=== PATIENT | male | born 1935 | race Caucasian/White ===

== ENCOUNTER → 2017-10-08 06:55 | Outpatient (CLI) | payer MEDICARE, OTHER, SELFPAY ==
--- NOTE | 2017-10-08 06:58 | ECHOD_ITS ---
Reason For Study: CAD Procedure This was a 2D Doppler, Color Flow transthoracic echocardiogram. The exam was of adequate technical quality. Exam performed in department. Left Ventricle Normal LV size. Mild segmental systolic dysfunction (see wall motion). The estimated ejection fraction is 40 %. Transmitral diastolic flow velocities suggest moderate (stage 2) diastolic dysfunction (pseudonormal pattern). Mid-Anterior : Hypokinetic. Mid-Lateral : Hypokinetic. Mid- inferoseptal : Hypokinetic. Anterior [place] : Hypokinetic. Inferior [place] : Akinetic. Lateral [place] : Akinetic. Septal [place] : Akinetic. Right Ventricle Normal RV size. ICD or pacer leads identified within the right ventricle. Normal systolic function. Atria The left atrium is moderately enlarged. The right atrium is mildly enlarged. ICD or pacer leads identified within the right atrium. No doppler evidence for ASD. Mitral Valve There is no mitral annular calcification. Normal mitral valve. Mild-Moderate (1-2+) mitral valve insufficiency. Tricuspid Valve Normal tricuspid valve. Mild to moderate (1-2+) tricuspid valve insufficiency. Right ventricular systolic pressure estimated to be 35 mmHg. Aortic Valve Trisinus/trileaflet aortic valve. Normal aortic valve. Mild (1+) aortic valve insufficiency. Pulmonic Valve The pulmonic valve is not well visualized. Great Vessels Normal sized aortic root. Pericardium/Pleural No pericardial effusion. MMode/2D Measurements & Calculations LVIDd: 4.7 cm IVSd: 1.2 cm Ao root diam: 3.0 cm LVIDs: 3.9 cm LVPWd: 1.1 cm RVDd: 3.4 cm FS: 16.7 % LAV(MOD-bp): 77.6 ml EDV(MOD-sp4): 99.1 ml EDV(MOD-sp2): 86.5 ml LAV(MOD-bp) Indexed: 40.9 ml/m2 ESV(MOD-sp4): 59.3 ml EF(MOD-sp2): 44.0 % LAV(MOD-sp2): 73.9 ml EF(MOD-sp4): 40.2 % LAV(MOD-sp4): 75.6 ml SV(MOD-sp4): 39.8 ml SV(MOD-sp2): 38.1 ml LA A4 area: 24.4 cm2 RA A4 area: 21.3 cm2 Doppler Measurements & Calculations MV E max delfino: 84.5 cm/sec Lat Peak E' Delfino: 11.6 cm/sec Med Peak E' Delfino: 6.0 cm/sec MV A max delfino: 26.6 cm/sec E/E' lat: 7.3 E/E' med: 14.1 MV E/A: 3.2 Ao V2 max: 128.5 cm/sec AI max delfino: 454.1 cm/sec LV V1 max: 75.7 cm/sec Ao max P.6 mmHg AI max P.5 mmHg LV V1 max P.3 mmHg AI dec slope: 184.9 cm/sec2 AI P1/2t: 719.5 msec TR max delfino: 281.1 cm/sec TR max P.7 mmHg Interpretation Summary Mild segmental systolic dysfunction (see wall motion). The estimated ejection fraction is 40 %. The left atrium is moderately enlarged. The right atrium is mildly enlarged. Mild-Moderate (1-2+) mitral valve insufficiency. Mild to moderate (1-2+) tricuspid valve insufficiency. Mild (1+) aortic valve insufficiency. Right ventricular systolic pressure estimated to be 35 mmHg. Transmitral diastolic flow velocities suggest diastolic dysfunction (pseudonormal pattern). Ordering Physician: Delon Aguilar Referring Physician: DINA SALVADOR Performed By: Debo Mcnulty, LUC, RVT
--- NOTE | 2017-10-08 20:38 | STRESSREP_ITS ---
Stress Test Report Date: 10/08/2017 Procedure: Pharmacologic stress nuclear imaging study Indications: CAD; atrial fibrillation; permanent pacemaker Consent: Per the patient Procedure: The patient underwent pharmacologic (Regadenoson) evaluation with a peak heart rate of 76 beats per minute (55 predicted maximal heart rate) and a peak blood pressure of 140/82 mmHg. The baseline ECG demonstrated electronic ventricular pacemaker. The peak pharmacologic ECG demonstrated continued electronic ventricular pacemaker. There were no cardiac dysrhythmias pretest, during pharmacologic infusion, or recovery. There was no complaint of chest discomfort during pharmacologic infusion or recovery. The examination was discontinued secondary to completion of protocol. Impression: 1. Pharmacologic (Regadenoson) evaluation 2. Peak pharmacologic ECG with continued electronic ventricular pacemaker. 3. There were no cardiac dysrhythmias pretest, during pharmacologic infusion, or recovery 4. Nuclear images pending Myocardial perfusion imaging study: Technique: The patient was injected with 10.9 millicuries of technetium 99m Cardiolite and subsequently rest SPECT Cardiolite nuclear imaging was obtained in the horizontal long, vertical long, and short axis views. The patient underwent pharmacologic (Regadenoson) evaluation with a peak heart rate of 76 beats per minute (55 % percent predicted maximal heart rate) and a peak blood pressure of 140/82 mmHg. The patient was injected with 34.3 millicuries of technetium 99m Cardiolite and subsequently stress SPECT Cardiolite nuclear imaging was obtained in the horizontal long, vertical long, and short axis views. A gated Cardiolite study at peak stress was obtained. Interpretation: Rest and stress SPECT Cardiolite nuclear imaging status post realignment, normalization, and attenuation correction demonstrate the appearance of diminished myocardial perfusion/tracer uptake in portions of the anterior apical and septal apical segments without significant change between rest and stress. There is diminished end systolic thickening and brightening in the aforementioned areas. The gated Cardiolite study demonstrates diminished myocardial thickening and inward wall motion in the aforementioned areas. The reported LVEF is 53 %. Impression: 1. And stress SPECT Cardiolite nuclear imaging demonstrate diminished myocardial perfusion/tracer uptake in portions of the anterior apical and septal apical segments without significant change between rest and stress appearing compatible with an area of previous myocardial injury/infarction with no myocardial perfusion changes consider diagnostic for associated stress- induced myocardial ischemia. 2. The gated Cardiolite study reports an LVEF of 53 %. This note was generated with Dragon dictation software. It may contain incorrect words, spelling, and punctuation that were not noted in checking the note before signing.
== END ==
PROVIDERS: Family Provider Family Medicine; PCP Family Medicine; Visit Provider Internal Medicine Cardiovascular Disease
DX: I25.10 Atherosclerotic heart disease of native coronary artery without angina pectoris (principal); I48.2 Chronic atrial fibrillation; R06.02 Shortness of breath; Z95.0 Presence of cardiac pacemaker
CPT/HCPCS: 78452; 93017; 93306; A9500; A4216; J2785

== ENCOUNTER → 2017-10-11 10:58 | Outpatient (CLI) | payer MEDICARE, OTHER, SELFPAY ==
[2017-10-11 11:51] LABS: Hemoglobin 14.7 g/dl (13.0-16.5); Mean Corp Hgb Conc 34.2 g/gl (32-36); Mean Corpuscular Hgb 31.3 pg (27.0-32.0); Mean Corpuscular Volume 91.5 fL (80-94); Mean Platelet Vol. 9.4 fl (6.2-12.0); Platelet Count 192 K/mm3 (150-450); RBC Distribution Width CV 13.2 % (11.6-14.6); RBC Distribution Width SD 43.7 fl (35.1-43.9); White Blood Count 6.5 K/mm3 (4.4-11.0)
[2017-10-11 11:53] LABS: Scan Indicated on CBC? Y/N NO
[2017-10-11 11:57] LABS: International Normalized Ratio 1.2; Prothrombin Time (Protime)PT. 14.7 SECONDS (11.7-14.9)
[2017-10-11 11:58] LABS: Partial Thromboplast Time 21.6 Seconds (24.1-36.2)
[2017-10-11 12:28] LABS: Anion Gap 8 (5-15); BUN 19 mg/dL (7-18); BUN/Creat Ratio 18.4 RATIO (10-20); Calcium,Total 8.9 mg/dL (8.5-10.1); Chloride 105 mmol/L (98-107); Creatinine, Serum 1.03 mg/dL (0.70-1.30); EST Glomerular Filtration Rate 73 mL/min (>60); Est Glom Filt Rate - Afr Amer 89 mL/min (>60); Glucose 76 mg/dL (74-106); Potassium 4.3 mmol/L (3.5-5.1); Sodium Level 141 mmol/L (136-145)
== END ==
PROVIDERS: Family Provider Family Medicine; PCP Family Medicine; Visit Provider Internal Medicine Cardiovascular Disease
DX: I48.2 Chronic atrial fibrillation (principal); R07.9 Chest pain, unspecified; I25.10 Atherosclerotic heart disease of native coronary artery without angina pectoris; E78.5 Hyperlipidemia, unspecified; Z95.0 Presence of cardiac pacemaker
CPT/HCPCS: 36415; 80048; 85027; 85610; 85730

== ENCOUNTER 2017-10-15 10:00 | Day surgery (SDC) | payer MEDICARE, OTHER, SELFPAY ==
--- NOTE | 2017-10-11 10:45 | RAD_ITS ---
STUDY: X-RAY CHEST REASON FOR EXAM: Male, 82 years old. Chest pain. TECHNIQUE: PA and lateral views of the chest. COMPARISON: None. FINDINGS: Hyperinflation. Decreased bronchovascular markings suggestive of a emphysematous changes. Scattered calcified granulomas. No acute infiltration is seen. There is no demonstrated pleural abnormality. Normal size heart. A left-sided dual-chamber pacemaker is seen. Normal mediastinum and ana m. Normal visualized pulmonary arteries. There is atherosclerotic calcification of the aortic arch with tortuosity. There are diffuse degenerative changes of the visualized thoracic spine. Healed left sixth rib fracture. There is no demonstrated abnormality of the visualized soft tissue structures of the upper abdomen. RAD/Chest PA and Lateral IMPRESSION: Hyperinflation. The lungs are clear. Electronically Signed: Jose Johns MD at 11:20 EDT Tel [phone], Service support ,
--- NOTE | 2017-10-15 10:00 | DT_ITS ---
This patient was seen during an EMR downtime October 14, 2017 - October 21, 2017. This patient may have a combination of paper and electronic documentation or all paper documentation. All documentation is viewable within the e-chart portion of [facility] for each patient visit.
--- NOTE | 2017-10-18 16:57 | CL.D_ITS ---
Patient Name: KAYCEE GUTIERRES Study Date: 10/15/2017 Performing: Delon Aguilar MD Ht: 67 inches 170.18 cm : 1935 Wt: 172.2 lbs 78.018 kg Age: 82 Gender: male BSA: 1.9 PROCEDURE(S) PERFORMED HO30-PBX/COR/LV CLINICAL PROFILE AND INDICATIONS Indications: Other: Abnormal pharmacologic stress nuclear study, Suspected CAD, Cardiac Arrythmia Heart Failure: None Stress/Imaging Stress Test w/SPECT MPI: Yes Result: PositiveStress Test with SPECT MPI: Positive Angina Classification Anginal Classification w/in 2 Weeks: No symptoms CONCLUSIONS Elevated Left Ventricular End Diastolic Pressure Segmented LV systolic dysfunction- Mild LVEF: by LV gram 50 % RECOMMENDATIONS Risk factor modification Medical therapy DESCRIPTION OF PROCEDURE The patient arrived to the procedure lab. The risks and benefits of the procedure as well as a full d escription of our services here and current unavailability of surgical backup were fully explained to the patient and/or their significant other prior to the catheterization. The Timeout was completed, verifying the correct patient and procedure. The patient's procedural site was prepped and draped in the usual fashion. Local anesthetic was given subcutaneously to right radial region with Lidocaine 2% . Using a modified Seldinger technique, arterial access was obtained via the right radial artery, a 5 Fr sheath was inserted. Right Coronary Artery selective angiography was then performed in multiple v iews using a 5 Fr. 4.0 [place] catheter. Left Coronary Artery selective angiography was performed in mu ltiple views using a 5 Fr. 4.0 [place] catheter. Left Ventriculography was performed in PERRY projection using a 5 Fr. [place] catheter. LV to AO pullback pressures were then recorded.The arterial sheath wa s pulled and a TR Band was applied for hemostasis. 18 cc of air was injected CORONARY ANGIOGRAPHY DOMINANCE: Right Dominant LEFT HEART ASSESSMENT Left Ventricular Ejection Fraction: by LV Gram 50 % Apical Hypokinesis Elevated Left Ventricular End Diastolic Pressure LVEDP: 21 mmHg LEFT ANTERIOR DECENDING ARTERY: CIRCUMFLEX ARTERY: Angiographically normal RAMUS: Angiographically normal RIGHT CORONARY ARTERY: PROX RCA: Mild luminal irregularities VALVE FINDINGS: Normal Aortic Valve function Normal Mitral Valve function AORTIC ROOT: Angiographically normal COMPLICATIONS No Complications PROCEDURE MEDICATIONS Fentanyl 25 mcg IV Versed 0.5 mg IV Versed 0.5 mg IV Fentanyl 25 mcg IV Oxygen: 2 L/min via nasal cannula Heparin diluted in 23cc Heparinized saline. Patient given 10cc IA of this solution. 10/15/2017 11:31:5 4 Verapamil 2.5mg, Ntg 100mcgs, 2000 units of Heparin diluted in 23cc Heparinized saline. Patient give n 10cc IA of this solution. 10/15/2017 11:31:54 SUMMARY OF HEMODYNAMIC DATA Time AIR REST ECG 10:23:29 AO 107/55 (75) SA 11:35:31 LV 144/15, 21 11:41:19 LV 146/18, 24 11:41:27 LV 140/15, 23 11:42:29 LV 146/15, 22 11:42:36 LVp 144/12, 26 11:42:41 AOp 155/76 (105) 11:42:46 Signed By Delon Aguilar MD On 10/18/2017 14:26:15 Delon Aguilar MD
== END 2017-10-15 15:15 | disposition home or self-care (01) ==
LOC: CLSP 10-28 14:12
PROVIDERS: Family Provider Family Medicine; PCP Family Medicine; Visit Provider Internal Medicine Cardiovascular Disease
DX: R94.39 Abnormal result of other cardiovascular function study (principal); I49.9 Cardiac arrhythmia, unspecified; R06.02 Shortness of breath; I25.10 Atherosclerotic heart disease of native coronary artery without angina pectoris; I48.2 Chronic atrial fibrillation; E78.5 Hyperlipidemia, unspecified; M19.90 Unspecified osteoarthritis, unspecified site; Z95.0 Presence of cardiac pacemaker; Z79.82 Long term (current) use of aspirin; Z79.02 Long term (current) use of antithrombotics/antiplatelets; F17.200 Nicotine dependence, unspecified, uncomplicated
CPT/HCPCS: 71046; 93458; 99152; 99153; J7040; Q9967; C1769; C1894

== ENCOUNTER 2020-03-21 09:35 | Day surgery (SDC) | payer MEDICARE, OTHER, SELFPAY ==
[2020-03-08 14:07] VITALS: BMI 24.5
[2020-03-08 15:04] LABS: Bacteria 0 SEEN /hpf (None Seen); Red Blood Cells-Urine 0 SEEN /hpf (0-5); Squamous Epithelial Cells - UA 0 SEEN /hpf (0-5); White Blood Cells 0 SEEN /hpf (0-5)
[2020-03-08 15:48] LABS: Hematocrit 42.6 % (40-54); Hemoglobin 14.2 g/dL (13.0-16.5); Mean Corp Hgb Conc 33.3 g/dL (32-36); Mean Platelet Vol. 9.9 fl (6.2-12.0); Platelet Count 188 K/mm3 (150-450); RBC Distribution Width CV 12.8 % (11.6-14.6); RBC Distribution Width SD 43.7 fl (35.1-43.9); Red Blood Count 4.58 M/mm3 (4.6-6.2); White Blood Count 6.7 K/mm3 (4.4-11.0)
[2020-03-08 15:50] LABS: Color, Urine Yellow (Yellow); Glucose, Dipstick Normal (Normal); Ketone-Dipstick 5 mg/dl (Negative); Leukocyte Esterase-Dipstick 25 /ul (Negative); Nitrite-Dipstick Negative (Negative); Occult Blood-Urine Negative /ul (Negative); Protein-Dipstick Negative (Negative); Urine Bilirubin Dipstick Negative (Negative); Urine Clarity Clear (Clear); Urine Urobilinogen 8 mg/dl (Normal)
[2020-03-08 15:58] LABS: Mucous, Urine 1+ /hpf (<or=2+)
[2020-03-08 16:24] LABS: Anion Gap 3 (5-15); BUN 25 mg/dL (7-18); BUN/Creat Ratio 17.7 RATIO (10-20); Calcium,Total 8.9 mg/dL (8.5-10.1); Chloride 102 mmol/L (98-107); Creatinine, Serum 1.41 mg/dL (0.70-1.30); EST Glomerular Filtration Rate 51 mL/min (>60); Est Glom Filt Rate - Afr Amer 61 mL/min (>60); Glucose 73 mg/dL (74-106); Potassium 3.5 mmol/L (3.5-5.1); Prothrombin Time (Protime)PT. 34.9 SECONDS (11.7-14.9); Sodium Level 141 mmol/L (136-145)
[2020-03-08 16:25] LABS: International Normalized Ratio 3.5
[2020-03-18 08:28] VITALS: BMI 24.5
--- NOTE | 2020-03-21 05:56 | HP_ITS ---
HPI HPI History of Present Illness Details: KAYCEE GUTIERRES, is a 84 year old white male who presents to the office today for a cardiovascular outpatient follow-up with a history of coronary artery disease, atrial fibrillation status post cardioversion, and permanent pacemaker placement. He continues to smoke. His device has reached BRYCE, and he needs to have his generator replaced. From a cardiac standpoint, patient is doing well. He does not have any chest discomfort/heaviness/tightness. He does not have any worsening symptoms of shortness of breath. He denies any PND. He does not have any orthopnea. He does not have any symptoms of congestive heart failure. He does not have any palpitations that he is aware of. He does not have any lightheadedness or dizziness. He does not have any near-syncope or syncope. He does not have any lower extremity edema. He does not have any symptoms of claudication. Intake Vital Signs 03/08/20 Height 5 ft 7 in 03/08/20 Weight: 157 lb 03/08/20 BMI 24.5 03/08/20 BP 126/73 H 03/08/20 Blood Pressure Location Lt brachial 03/08/20 Position Sitting 03/08/20 Respiration 18 03/08/20 Pulse 77 03/08/20 Pulse Source Monitor 03/08/20 Pulse Oximetry (%) 97 Intake Visit Reasons: H&P, approaching Deanna WU 1:30 Curer Acid Drum Required: No Accompanied by: None Is patient in pain?: No Allergies No Known Allergies Allergy (Verified 03/08/20 13:40) Medications aspirin 81 mg tablet,delayed release 81 mg PO QDAY 09/18/17 [History Confirmed 03/08/20] pravastatin 40 mg tablet 40 mg PO QDAY 09/18/17 [History Confirmed 03/08/20] rivaroxaban 20 mg tablet 20 mg PO QDAY 09/18/17 [History Confirmed 03/08/20] metoprolol succinate 25 mg tablet,extended release 24 hr 25 mg PO DAILY #30 tab 04/20/19 [Rx Confirmed 03/08/20] hydrochlorothiazide 25 mg tablet 25 mg PO DAILY #30 tab 05/26/19 [Rx Confirmed 03/08/20] ciprofloxacin HCl 500 mg tablet 500 mg PO BID #10 tab 03/09/20 [Rx Confirmed 03/09/20] PFSH Medical History Sick sinus syndrome (Chronic) Pure hypercholesterolemia (Chronic) Non-ischemic cardiomyopathy (Chronic) Atherosclerosis of [place] coronary artery of [place] heart without angina pectoris (Chronic) Chest pain (Resolved) Chronic atrial fibrillation (Chronic) History of rheumatic fever (Chronic) Insomnia (Chronic) Osteoarthritis (Chronic) Tear of rotator cuff (Resolved) Surgical History 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) History of tonsillectomy (Resolved) Hx of appendectomy (Resolved ~1960) Social History (Updated 03/09/20 @ 17:13 by Sheron CHONG, PA) Smoking Status: Heavy Smoker (>10/day) second hand exposure: No alcohol intake: never substance use type: does not use caffeine: Yes Type: coffee Number of servings: 1 ROS Const Const: Negative for fatigue, weakness, fever(s) or headache(s) Eyes Eyes: Negative for blind spots, loss of peripheral vision or transient loss of vision ENT ENT: Negative for headache(s), dizziness, tinnitus or Nosebleed/epistaxis Cardio Chest Pain: No Palpitations: No Edema: None Muscle aches with walking: None Resp Respiratory: Negative for SOB with activity, SOB at rest, SOB orthopnea\SOB lying down or Cough GI GI: Negative nausea, vomiting, heartburn or vomiting blood/hematemesis : Negative for hematuria Musc Musc: Negative for muscle aches/ myalgia Neuro Neuro: Negative for dizziness, lightheadedness, near syncope, syncope, orthostatic symptoms, headache(s) or weakness Guillaume Hematologic/Lymphatic: Negative for easy bleeding Endo Endo: Negative for fatigue Cardiology Exam Const Appearance: cooperative, healthy appearing, comfortable and no acute distress Nutritional Appearance: average body habitus and well nourished Orientation: alert, awake and oriented x3 Head Head: normal to inspection Ears: hearing grossly normal bilaterally Nose: external nose normal Face and Sinus: face symmetric Mouth: oral mucosae normal Eyes General: appearance normal, both eyes and all related structures Eyelids: eyelids normal EOM: EOM intact bilaterally Neck Neck: normal visual inspection and no JVD Carotids: normal carotid upstroke Chest Chest inspection: normal inspection of the chest, symmetric chest movement and normal respiratory effort; negative cough Auscultation: Bilateral: Clear to Auscultation Cardio Palpation: normal PMI Rate: regular rate Rhythm: irregular rhythm Heart sounds: S1 normal and S2 normal; negative rub, gallop or murmur GI GI: normal to inspection Neuro General: alert, awake, oriented x3 and CN's II-XI intact bilaterally Skin Skin: no rashes or lesions noted Extremities Pulses: Normal: Right Posterior Tibial Pulse, Left Posterior Tibial Pulse, Right Radial Pulse, Left Radial Pulse Lower Extremity Edema: None: Bilateral Psych Psychological: normal affect Assessment & Plan 1. Atherosclerosis of [place] coronary artery of [place] heart without angina pectoris I25.10 Plan Stable, from a cardiac standpoint patient does not have any symptoms of angina. We recommend that they continue with current aggressive medical management and risk factor modification. 2. Chronic atrial fibrillation I48.20 Plan Patient's heart rate is controlled. He will continue with his metoprolol and his Xarelto. 3. Cardiac pacemaker in situ Z95.0 Plan Patient's device has reached BRYCE. He is scheduled to undergo a generator change in the near future. with Dr. Washington. Instructions were given to him on how to proceed with this. Orders Orders: 12 Lead EKG performed by [facility] 03/08/20 4. Pure hypercholesterolemia E78.00 Plan This is managed by his primary care doctor. He will continue with his moderate intensity statin. Plan Detail Follow Up 03/08/20 (Keep as is) Coding Level of Care Code Off vis,est,level 4 Diagnoses Atherosclerosis of [place] coronary artery of [place] heart without angina pectoris I25.10 Chronic atrial fibrillation I48.20 Cardiac pacemaker in situ Z95.0 Pure hypercholesterolemia E78.00 Coding Level of Care Code Off vis,est,level 4 Diagnoses Atherosclerosis of [place] coronary artery of [place] heart without angina pectoris I25.10 Chronic atrial fibrillation I48.20 Cardiac pacemaker in situ Z95.0 Pure hypercholesterolemia E78.00 Supplemental Info Supplemental Information He does have a copy of his pacemaker card. It appears that he has a [employer] device placed on 12/08/2012 with a model number of [id number] and a serial number of [id number]. It appears this is a dual-chamber pacemaker. Heart catheterization from 10/15/2017: CORONARY ANGIOGRAPHY DOMINANCE: Right Dominant LEFT HEART ASSESSMENT Left Ventricular Ejection Fraction: by LV Gram 50 % Apical Hypokinesis Elevated Left Ventricular End Diastolic Pressure LVEDP: 21 mmHg LEFT ANTERIOR DESCENDING ARTERY: CIRCUMFLEX ARTERY: Angiographically normal RAMUS: Angiographically normal RIGHT CORONARY ARTERY: PROX RCA: Mild luminal irregularities VALVE FINDINGS: Normal Aortic Valve function Normal Mitral Valve function AORTIC ROOT: Angiographically normal Echocardiogram from 10/08/2017: Interpretation Summary Mild segmental systolic dysfunction (see wall motion). The estimated ejection fraction is 40 %. The left atrium is moderately enlarged. The right atrium is mildly enlarged. Mild-Moderate (1-2+) mitral valve insufficiency. Mild to moderate (1-2+) tricuspid valve insufficiency. Mild (1+) aortic valve insufficiency. Right ventricular systolic pressure estimated to be 35 mmHg. Transmitral diastolic flow velocities suggest diastolic dysfunction (pseudonormal pattern). Stress test from 10/08/2017: Procedure: Pharmacologic stress nuclear imaging study Indications: CAD; atrial fibrillation; permanent pacemaker Consent: Per the patient Procedure: The patient underwent pharmacologic (Regadenoson) evaluation with a peak heart rate of 76 beats per minute (55 predicted maximal heart rate) and a peak blood pressure of 140/82 mmHg. The baseline ECG demonstrated electronic ventricular pacemaker. The peak pharmacologic ECG demonstrated continued electronic ventricular pacemaker. There were no cardiac dysrhythmias pretest, during pharmacologic infusion, or recovery. There was no complaint of chest discomfort during pharmacologic infusion or recovery. The examination was discontinued secondary to completion of protocol. Impression: 1. Pharmacologic (Regadenoson) evaluation 2. Peak pharmacologic ECG with continued electronic ventricular pacemaker. 3. There were no cardiac dysrhythmias pretest, during pharmacologic infusion, or recovery 4. Nuclear images pending Myocardial perfusion imaging study: Technique: The patient was injected with 10.9 millicuries of technetium 99m Cardiolite and subsequently rest SPECT Cardiolite nuclear imaging was obtained in the horizontal long, vertical long, and short axis views. The patient underwent pharmacologic (Regadenoson) evaluation with a peak heart rate of 76 beats per minute (55 % percent predicted maximal heart rate) and a peak blood pressure of 140/82 mmHg. The patient was injected with 34.3 millicuries of technetium 99m Cardiolite and subsequently stress SPECT Cardiolite nuclear imaging was obtained in the horizontal long, vertical long, and short axis views. A gated Cardiolite study at peak stress was obtained. Interpretation: Rest and stress SPECT Cardiolite nuclear imaging status post realignment, normalization, and attenuation correction demonstrate the appearance of diminished myocardial perfusion/tracer uptake in portions of the anterior apical and septal apical segments without significant change between rest and stress. There is diminished end systolic thickening and brightening in the aforementioned areas. The gated Cardiolite study demonstrates diminished myocardial thickening and inward wall motion in the aforementioned areas. The reported LVEF is 53 %. Impression: 1. And stress SPECT Cardiolite nuclear imaging demonstrate diminished myocardial perfusion/tracer uptake in portions of the anterior apical and septal apical segments without significant change between rest and stress appearing compatible with an area of previous myocardial injury/infarction with no myocardial perfusion changes consider diagnostic for associated stress-induced myocardial ischemia. 2. The gated Cardiolite study reports an LVEF of 53 %. Diagnostics Electrocardiogram 03/08/20 Pacemaker Check 03/08/20 Cardiac Catheterization 10/15/17 Chest X-Ray 10/11/17 COVID (Procedure Consent) Procedure Criteria Procedure Criteria: Yes Elective The surgeon/proceduralist and patient have discussed in detail the risk of exposure to and/or potential harm posed by the COVID-19 virus with having a surgery/procedure at this time versus the risk of? delaying the surgery/procedure. It is not possible to know either the risk of delaying the surgery or procedure or chance of getting an infection with perfect accuracy, but a joint decision was made between the patient and the surgeon/proceduralist ?to proceed at this time with the scheduled surgery/procedure as indicated on the consent form.
[2020-03-21 09:51] LABS: Prothrombin Time Fingerstick 13.2 SEC (11.9-14.4)
--- NOTE | 2020-03-21 09:55 | RAD_ITS ---
STUDY: X-RAY CHEST REASON FOR EXAM: Male, 84 years old. Pacemaker generator change, NO CHEST COMPLAINTS TODAY TECHNIQUE: Frontal and lateral views of the chest. COMPARISON: 10/11/2017 FINDINGS: Dual-chamber pacemaker on the left. Calcified granuloma in the left lung base. There is no demonstrated pleural abnormality. Normal size heart. Normal mediastinum and ana m. Normal visualized pulmonary arteries. Normal visualized aortic arch and descending thoracic aorta. Normal visualized thoracic spine. Remote bilateral rib trauma. There is no demonstrated abnormality of the visualized soft tissue structures of the upper abdomen. RAD/Chest PA and Lateral IMPRESSION: No acute pulmonary findings. Electronically Signed: Blake Mera MD at 23:20 EST Tel , Service support ,
--- NOTE | 2020-03-21 11:41 | CL.IE_ITS ---
Patient: KAYCEE GUTIERRES Study Date: 03/21/2020 Performing: Kevon Washington MD : 1935 Age: 84 Gender: male PROCEDURES PERFORMED RO52-WUPNENA REMOVAL+REPLACEMENT PACER-DUAL LEAD INDICATIONS End-of-life replacement indicator PROCEDURE DETAILS The patient was brought to the Catheterization Lab in the postabsorptive nonsedated state. Infor med consent was obtained prior to the procedure. Local anesthetic was given subcutaneously to the le ft upper chest area with Lidocaine 2%. Incision was made to the left upper chest. PPM generator was r emoved. PPM atrial lead (existing) was checked and tested. PPM ventricular lead (existing) was checke d and tested. PPM generator was attached to the lead(s) and inserted into the pocket. Device pocket w as irrigated with antibiotic. Subcutaneous closure was completed with 3-0 Vicryl. Skin closure was co mpleted with 4-0 Vicryl. Steri-strips applied to left subclavicular incision. The patient tolerated the procedure well. Estimated Blood Loss: < 10 mls IMPLANTED / EX-PLANTED DEVICES IMPLANTED DEVICE(S): PPM Generator - Adjunct Faculty Instructor: [employer], Model # [id number] , Serial # [id number] DEVICE PARAMETERS DEVICE PARAMETERS: Mode - VVIR lower rate - 70 upper rate - 130 rate response off Mode- VVIR Lower rate- 70 Upper rate- 130 CONCLUSIONS / RECOMMENDATIONS Device Conclusions: Successful implantation of a dual chamber pacemaker battery change and replacemen t Device Recommendations: Follow up with Primary Care Physician PROCEDURE MEDICATIONS Fentanyl 50 mcg IV Versed 1 mg IV Oxygen: 2 L/min via nasal cannula Antibiotic given in appropriate timeframe. Ancef 2 Gm IV @ 03/21/2020 10:52:22 Signed By Kevon Washington MD On 03/21/2020 11:41:13 Kevon Washington MD
== END 2020-03-21 13:25 | disposition home or self-care (01) ==
PROVIDERS: Physician Assistant Medical; PCP Family Medicine; Referring Provider Internal Medicine Cardiovascular Disease; Visit Provider Internal Medicine Cardiovascular Disease
DX: I48.20 Chronic atrial fibrillation, unspecified (principal); Z95.0 Presence of cardiac pacemaker; I42.8 Other cardiomyopathies; I49.5 Sick sinus syndrome; M19.90 Unspecified osteoarthritis, unspecified site; E78.00 Pure hypercholesterolemia, unspecified; I25.10 Atherosclerotic heart disease of native coronary artery without angina pectoris; F17.200 Nicotine dependence, unspecified, uncomplicated; Z79.02 Long term (current) use of antithrombotics/antiplatelets; Z79.899 Other long term (current) drug therapy
CPT/HCPCS: 33228; 36415; 36416; 71046; 80048; 81001; 85027; 85610; 99152; 99153; J7040; J7050